=== PATIENT | male | born 1955 | race Caucasian/White ===

== ENCOUNTER → 2019-07-29 | Outpatient (CLI) | payer BC ==
--- NOTE | 2019-07-29 11:54 | ECHOS ---
STRESS ECHOCARDIOGRAM DATE OF SERVICE: 07/29/2019 INDICATIONS: Chest pain. MEDICATIONS: Atorvastatin, omeprazole, metformin. BASELINE HEART RATE: 70 BASELINE BLOOD PRESSURE: 140/73 MAXIMUM HEART RATE: 159 MAXIMUM BLOOD PRESSURE: 219/83 85% MPHR: 135 100% MPHR: 159 METS: 10.3 MAXIMUM STAGE REACHED: III TOTAL EXERCISE TIME: 9 minutes CLINICAL INFORMATION: Baseline rhythm is sinus mechanism, rate of 70, normal axis and intervals, poor R progression. Baseline blood pressure 140/73 mmHg. Patient exercised on Juanito protocol for 9 minutes reaching peak rate 159 beats per minute which is equal to 100% maximum predicted heart rate. Peak blood pressure 219/83 mmHg. Test was terminated secondary to fatigue. There is no chest pain. Electrocardiograph monitoring revealed a [address]-segment depression inferolateral leads that improved in recovery. Baseline echocardiogram revealed normal wall thickness and motion. At peak exercise, there was a questionable inferobasal septal wall hypokinesis, although not well visualized that could represent small area of stress-induced ischemia. CONCLUSION: 1. Good exercise tolerance with positive electrocardiograph stress testing. 2. Abnormal stress echocardiogram with an area of hypokinesis involving the inferobasal and inferoseptal wall that is suggestive of stress-induced ischemia in the RCA territory. MMODL / IJN: [id number] / MTDD
== END | disposition home or self-care (01) ==
LOC: RADNMMAIN 09:40
PROVIDERS: ATTEND Internal Medicine
DX: R94.39 Abnormal result of other cardiovascular function study (principal)
CPT/HCPCS: 93351

== ENCOUNTER 2019-08-19 06:22 | Day surgery (SDC) | payer BC ==
[2019-08-17 14:22] VITALS: BMI 30.2
[~2019-08-19 06:22] MED LIST: ALPRAZolam 0.25 MG TAB PO PRN; ALPRAZolam 0.5 MG TAB PO PRN; NITROGLYCERIN SL TABS 0.4 MG TAB SUBLINGUAL PRN; SODIUM CHLORIDE 0.9% 1,000 ML in EMPTY BAG 1 BAG IV ONE
[2019-08-19] MEDS ORDERED: ASPIRIN 81 MG ONE (06:38)
[2019-08-19] MEDS ORDERED: ASPIRIN 325 MG TAB PO ONE (07:00)
[2019-08-19] MEDS ORDERED: ATORVASTATIN 80 MG TAB PO ONE (07:00)
[2019-08-19 07:04] LABS: Glucose,Whole Blood 147 mg/dL (75-99)
[2019-08-19] MEDS ORDERED: fentaNYL (PF) 50 MCG/ML 2 ML AMP IVP ONE (07:46)
[2019-08-19] MEDS ORDERED: LIDOCAINE 1% INJ 10MG/ML (20 ML MDV) SQ ONE (07:50)
[2019-08-19] MEDS ORDERED: MIDAZOLAM 2 MG/2 ML VIAL IVP ONE (07:51)
[2019-08-19] MEDS ORDERED: VERAPAMIL SYRINGE (5 MG/10 ML) INTRAARTER ONE (07:52)
[2019-08-19] MEDS ORDERED: BIVALIRUDIN BOLUS 250 MG/50 ML IV ONE (08:07)
[2019-08-19] MEDS ORDERED: BIVALIRUDIN 250 MG in SODIUM CHLORIDE 0.9% 50 ML IV ONE ×4 (08:09)
[2019-08-19] MEDS ORDERED: PRASUGREL 10 MG TAB PO ONE (08:11)
[2019-08-19] MEDS ORDERED: NITROGLYCERIN 1000MCG/10ML SYRINGE INTRACORON ONE (08:18)
[2019-08-19] MEDS ORDERED: IOPAMIDOL-370 125ML BTL INJ ONE ×2 (08:18)
[2019-08-19] MEDS ORDERED: IOPAMIDOL-370 100ML BTL INJ ONE (08:19)
[2019-08-19] MEDS ORDERED: RX INFO: IV CONTRAST WAS GIVEN 1 EACH MISC MISCELLANE PRN (08:29)
[2019-08-19] MEDS ORDERED: MAG HYDROX/AL HYDROX/SIMETH 30 ML CUP PO PRN (08:29)
[2019-08-19] MEDS ORDERED: NITROGLYCERIN SL TABS 0.4 MG TAB SUBLINGUAL PRN (08:29)
[2019-08-19] MEDS ORDERED: ATROPINE SULFATE 0.1 MG/ML 10ML SYRINGE IV PRN (08:29)
[2019-08-19] MEDS ORDERED: SODIUM CHLORIDE 0.9% 1,000 ML IV SCH (08:30)
[2019-08-19] MEDS ORDERED: PANTOPRAZOLE 40 MG TABLET PO PRN (08:30)
--- NOTE | 2019-08-19 09:06 | PTCA ---
PERCUTANEOUSTRANS CORORONARY ANGIOGRAPHY Mr. Gardner is a 64-year-old male with a known history of hypertension, hyperlipidemia, and diabetes mellitus, who has been complaining of episode of chest discomfort and had an abnormal stress test, underwent cardiac catheterization was found to have critical stenosis involving the proximal LAD. In view of that, recommendation was made regarding angioplasty and stenting. The procedure as well as the risks and complications were discussed with the patient who is in full understanding and agreement. PROCEDURE: A 6-Cymraes FL 3.5 guiding catheter introduced in the system. After cannulating the left main, a 0.014 balanced medium weight J-wire was advanced across the lesion and positioned in distal LAD. Subsequently a 3.5 x 15 mm Xience Kelli stent was advanced, deployed and postdilated at 16 atmospheres. After the last inflation, after appropriate wait, the balloon and the guidewire withdrawn back in the guiding catheter. Images were obtained, repeated. Those images reveal stable successful stenting. At that point, the guiding catheter, the balloon, the guidewire were removed. Sheath was removed. Hemostasis was obtained with deployment of TR band. There was no immediate complication. Patient was returned to his room in stable condition. Of note, the patient received Angiomax per protocol as well as oral loading dose of Effient. He has received intra-arterial verapamil. RESULTS: Successful stenting of the proximal LAD with reduction of stenosis from 70% to 0%. RECOMMENDATION: Patient will be continued on aspirin, Effient, beta markos, and statin. The importance of dual antiplatelet treatment were discussed with the patient and his family who are in full understanding and agreement. Duration of procedure is 36 minutes. MMODL / IJN: [id number] /
--- NOTE | 2019-08-19 09:10 | LTR ---
August 19, 2019 Re: Stas Gardner Dear Dr. Castaneda: I had the opportunity to perform cardiac catheterization and coronary angioplasty and stenting on Mr. Gardner at [facility] on the 19 of August and a full copy of the procedure note will be forwarded to you. In brief, he underwent successful stenting of his proximal LAD using a drug-eluting stent. I am hopeful that this procedure will stabilize his status. Thank you again for allowing me the opportunity to participate in his care. Please feel free to call for any questions. Sincerely yours, Sunshine Osorio MD MMBOLAL / EVERN: [id number] /
--- NOTE | 2019-08-19 09:16 | CC ---
CARDIAC CATHETERIZATION REPORT Mr. Gardner is a 64-year-old male with a known history of hypertension, hyperlipidemia, diabetes mellitus, who has been complaining of exertional chest discomfort. He had an abnormal stress echocardiogram. In view of that, recommendation regarding cardiac catheterization. The procedures, risks, and complications were discussed with the patient who is in full understanding and agreement. PROCEDURE: Patient was brought to the r and d lab technician in the fasting semi-sedated state after receiving fentanyl and Benadryl and achieving moderate conscious sedated state. Using Xylocaine anesthesia and a Seldinger technique, a 6-Japanese sheath was introduced in the right radial artery. Selective right and left coronary angiography performed using 5- Japanese 3.5 bend right and left Boy catheter multiple views of the coronary artery including hemiaxial views obtained. Following that, 5-Japanese tight pigtail catheter was introduced in the left ventricle and pressures were calculated. Following that, catheter removed, images were reviewed. FINDINGS: LEFT MAIN: This is a large-sized vessel trifurcating into left circumflex, left anterior descending artery and ramus intermedius. Left main coronary artery has no evidence of obstructive coronary artery disease. LEFT ANTERIOR DESCENDING ARTERY: This is a large-sized vessel reaching toward the apex with a wraparound apex segment giving rise to a large diagonal branch proximally. Prior to the takeoff of diagonal branch, there is a 70% eccentric lesion. The rest of the vessel has no high-grade stenosis. LEFT CIRCUMFLEX: This is a non-dominant vessel, large in caliber, giving rise to a large obtuse marginal branch. The left circumflex has mild intimal disease of 10% to 20% without any evidence of high-grade stenosis. RAMUS INTERMEDIUS: This is a large-sized vessel, reaching toward the apical lateral wall. The ramus intermedius has a 10% to 20% plaque proximally without any evidence of high-grade stenosis. RIGHT CORONARY ARTERY: This is a large dominant vessel bifurcating distally into PDA and posterolateral segment and branches the right coronary artery in mid segment has a 20% eccentric plaque. The rest of the vessel has no high-grade stenosis. LEFT VENTRICULOGRAM: Left ventriculogram was not performed. HEMODYNAMICS: There was no gradient across the aortic valve. The left ventricular end- diastolic pressure is 16-20 mmHg. CONCLUSION: 1. Critical stenosis involving the proximal left anterior descending artery. 2. Mild disease in the right coronary artery and left circumflex. RECOMMENDATION: In view of finding anatomy, I recommend proceeding with angioplasty and stenting of the LAD. The procedures, risks, and complication were discussed with the patient,.who is in full understanding and agreement. MMBOLAL / IJN: [id number] / MTDD
[2019-08-19] MEDS ORDERED: ZOLPIDEM 5 MG TAB PO PRN (21:00)
[2019-08-19] MEDS: METOPROLOL SUCCINATE (ER) 50 MG TAB.ER.24H PO SCH (21:40)
[2019-08-20] MEDS ORDERED: OXYMETAZOLINE 0.05% NASL SPRAY 1 SPRAY BOTTLE NASAL PRN (07:00)
--- NOTE | 2019-08-20 07:29 | PN ---
PROGRESS NOTE CARDIAC PROGRESS NOTE: Mr. Gardner is a 64-year-old male with known history of diabetes and hyperlipidemia who presented with symptoms of chest discomfort and abnormal stress test, underwent cardiac catheterization, was found to have critical stenosis involving the proximal LAD and underwent stenting of that vessel. He had epistaxis during the night and according to him he has that at home during the winter. He denies any chest pain. His breathing has been stable. He denies any dizziness or palpitation. He denies any nausea. He continued to be on aspirin once a day, Lipitor 40 mg daily, metoprolol succinate 50 mg daily, Effient 10 mg daily. PHYSICAL EXAMINATION: Blood pressure 131/80 with the heart rate in 70s. LUNGS: Clear. HEART: Regular rate and rhythm. S1, S2. No S3. No rub. ABDOMEN: Soft, nontender. EXTREMITIES: No edema. Right radial pulse intact. LAB DATA: Lab data are pending. IMPRESSION: 1. Status post stenting of the LAD. 2. Hyperlipidemia. 3. Diabetes. RECOMMENDATION: Patient will be discharged home today and followed as an outpatient. He will resume his metformin in 48 hours. MMODL / IJN: [id number] /
[2019-08-20 07:44] LABS: Calcium 9.7 mg/dL (8.4-10.2); Potassium 4.5 mmol/L (3.5-5.1)
[2019-08-20 07:57] VITALS: RESP 16
[2019-08-20] MEDS: ASPIRIN 81 MG PO SCH (09:11)
[2019-08-20] MEDS: ATORVASTATIN 40 MG TAB PO SCH (09:11)
[2019-08-20] MEDS: PRASUGREL 10 MG TAB PO SCH (09:11)
[2019-08-20] MEDS ORDERED: BACITRACIN 500 UNIT/GM OINT 28.4 GM TUBE TOPICAL PRN (15:37)
[2019-08-20] MEDS: METOPROLOL SUCCINATE (ER) 50 MG TAB.ER.24H PO SCH (20:11)
--- NOTE | 2019-08-20 21:20 | CONS ---
CONSULTATION DATE OF CONSULTATION: 08/20/2019 REASON FOR CONSULTATION: Left-sided epistaxis. HISTORY OF PRESENT ILLNESS: This patient is a very pleasant 64-year-old male who was initially brought to [facility] because of complaints of chest pain. The patient apparently failed a stress test and subsequently underwent cardiac catheterization with insertion of a stent. He was given heparin for this procedure. Shortly after the procedure and prior to the patient's discharge, he started developing bleeding from the left nostril and spit out a rather large blood clot. Apparently each time the patient tried to sit up or stand up, it produced the same result; namely, he would spit out a large blood clot. He states that in the past he has had minor nosebleeds off and on, but he has always been able to stop them by simply pinching his nostrils. He also admits to taking baby aspirin infrequently. He smokes 1 or 2 cigars occasionally and has been advised to stop use of all tobacco products for obvious health reasons. I advised the patient that cigars are just as harmful to his health, especially his cardiac health, as are cigarettes. At the present time, the patient is not having any significant therenasal bleeding in his room. PAST MEDICAL HISTORY: Past medical history reveals that he has an ALLERGY TO PENICILLIN. HOME MEDICATIONS: Home medications include; 1. Metformin. 2. Metoprolol. 3. Aspirin. 4. Prilosec. 5. New medication Effient 6. Nitroglycerin. 7. Lipitor. REVIEW OF SYSTEMS: Review of systems reveals that the cardiovascular system is positive for hypertension and ASHD. Gastrointestinal system is positive for GERD (gastroesophageal reflux disorder). The metabolic/endocrine system is positive for hypercholesterolemia. The remainder of the review of systems is essentially unremarkable. PHYSICAL EXAMINATION: HEENT EXAMINATION: Patient is normocephalic. Tympanic membranes are normal. Middle ear spaces are free of any fluid or infection. Pupils are equal, round and reactive to light and accommodation. Conjunctivae are clear. Intranasal examination reveals right naris is completely clear. However, examination of the left naris reveals an area of recent bleeding on the anterior septum. I allowed the patient's nurse to view this area. At that time it was not actively bleeding, but within the span of a short amount of time, it did start to bleed. There is [id number] septal deviation to left with bilateral compensatory hypertrophy of the inferior turbinates. Examination of oropharynx reveals a small amount of blood running down the posterior pharyngeal wall. Cranial nerves 2 through 12 and the remainder of the head and neck exam all within normal limits. CHEST/CARDIOVASCULAR: Both lung cool are clear to percussion and auscultation. Patient is in regular sinus rhythm. S1 and S2 are present without evidence of any murmurs, S3s or S4s. The remainder of the physical exam is essentially unremarkable. IMPRESSION: 1. Left anterior epistaxis. 2. Hypertension. 3. Atherosclerotic heart disease. 4. Gastroesophageal reflux disorder. 5. Hypercholesterolemia. PLAN: I spent almost 2 hours with this patient in an effort to get the bleeding to stop. Initially, I tried spraying Afrin nasal spray intranasally, but this did not work. The next step was to try applying pressure with a nose clip for 5 minutes, and again the patient continued to bleed. I subsequently went to my office and retrieved a packing material called Nasal-cease. This material is not like the usual packing material used in the emergency room because it tends to be less traumatic to the nasal mucosa. My concern at this point is that if we place a standard packing of either nasal balloons or a Merocel nasal tampon intranasally, we will simply stir up additional bleeding spots. Certainly, the reason why the bleeding is persistent is because of the blood thinner, but he cannot stop his blood thinner because of the stent. Again, I spent approximately 2 hours with this patient, and initially I inserted one of the Nasal-cease packing material in the left naris and this was left in place for a period of approximately 30 minutes, as required. Upon removing the packing, the patient was still having some oozing, and therefore a second packing was applied. This again was left in place for a period of approximately 30 minutes. Upon removing the second packing, there was no evidence of any bleeding. It was noted that the packing was only lightly stained with blood. Each time that I inserted packing I made sure that the patient's understood the process and that she felt that if necessary that she could insert the packing. A mustache dressing was created and applied to the patient's naris to prevent him from constantly dabbing his nose with a towel. The patient has been advised not to blow his nose. If he feels there is something in his nose, he should simply sniff it back and spit it out. Also, if he has to sneeze, I have advised the patient to open his mouth and let the force of the sneeze come out through his mouth. I would recommend that we keep the patient overnight for observation, and if he has no further significant bleeding episodes, then I will be in tomorrow and I will discharge him to home between 1:00pm and 1:30pm. Please do not discharge the patient before this time because I would like to see him. I will dictate a series of homegoing instructions for this patient, all of which I have gone over with the patient and his in the patient's room. In addition to this, I will give the patient several samples of the Nasal-cease packing, and I have instructed them how to use them. For the next 5 days I will simply have the patient apply bacitracin ointment twice daily. Beginning Friday, he can start putting Afrin nasal spray in his left naris, 3 puffs, 3 times daily. He should then wait 15 minutes and then apply a dab of the bacitracin ointment intranasally for the next 5 days. After 5 days, he should switch over to regular generic Vaseline petroleum jelly. He will continue using the Vaseline petroleum jelly twice daily until such time as he turns his heating system off. All of these instructions and more are included in his discharge packet. I suspect this patient will continue to have nosebleeds off and on during the winter months and perhaps even more so now that he has to remain on a blood thinner. Certainly applying Vaseline petroleum jelly twice daily will help keep the nose moist, and I have also recommended that the patient's purchase a cool mist humidifier to place in the bedroom. The Vaseline petroleum jelly is highly effective with keeping the nasal mucosa moist, and they will continue using this until such time as they turn the heating system off in their home. I will leave a prescription for Zithromax Tri-Raul keep the patient from developing a sinus infection because of probable blood in the maxillary sinus. I want to take this opportunity to thank you for allowing me to assist in the care of your patient. As I stated above, I will see the patient tomorrow, and if he is doing okay then I will okay his discharge. Please do not discharge this patient before I have a chance to see him. If I could be of any further assistance, please feel free to call my office. Sincerely, Roland Stephen M.D. HO / OLGA: [id number] / RICHARD
[2019-08-21 07:35] VITALS: TEMP 97.5
[2019-08-21] MEDS: PRASUGREL 10 MG TAB PO SCH (08:48)
[2019-08-21] MEDS: ATORVASTATIN 40 MG TAB PO SCH (08:48)
[2019-08-21] MEDS: ASPIRIN 81 MG PO SCH (08:48)
--- NOTE | 2019-08-21 10:26 | PN ---
PROGRESS NOTE Mr. Gardner is a 64-year-old male with history of diabetes and hyperlipidemia who presented with abnormal stress test and symptoms of chest discomfort. He underwent cardiac catheterization and stenting of the LAD. Yesterday he had persistent epistaxis. His discharge was held. He was evaluated by Dr. Stephen. His epistaxis resolved. He is doing well this morning ambulating without difficulty. Denying any chest pain. No dizziness. No palpitations. No nausea. He continues to be on aspirin 81 mg daily, Effient 10 mg daily, metoprolol succinate 50 mg daily, Lipitor 40 mg daily. PHYSICAL EXAMINATION: Blood pressure 133/80 with a heart rate in the 80s. LUNGS: Clear. HEART: Regular rate and rhythm. S1, S2. No S3. No rub. ABDOMEN: Soft, nontender. EXTREMITIES: No edema. IMPRESSION: 1. Status post stenting of the left anterior descending coronary artery, stable. 2. Hyperlipidemia. 3. Diabetes. 4. Epistaxis, stable. RECOMMENDATIONS: Patient will be evaluated today by Dr. Rivero. If he is stable, he should be able to be discharged home and follow as an outpatient in one week. MMODL / IJN: [id number] /
[2019-08-21 11:07] VITALS: BP 113/76; PULSE 96
== END 2019-08-21 13:49 | disposition home or self-care (01) ==
LOC: CATHCVL 06:22 → 3SCARD 11:58 → CATHCVL 08-21 13:49
PROVIDERS: ATTEND Internal Medicine Interventional Cardiology
DX: I25.10 Atherosclerotic heart disease of native coronary artery without angina pectoris (principal); I10 Essential (primary) hypertension; F17.290 Nicotine dependence, other tobacco product, uncomplicated; E78.5 Hyperlipidemia, unspecified; E11.9 Type 2 diabetes mellitus without complications; K21.9 Gastro-esophageal reflux disease without esophagitis; E78.00 Pure hypercholesterolemia, unspecified; R04.0 Epistaxis; Z79.84 Long term (current) use of oral hypoglycemic drugs; Z79.82 Long term (current) use of aspirin; Z79.899 Other long term (current) drug therapy; Z88.0 Allergy status to penicillin
CPT/HCPCS: 93458; 85347; 80048; C9600; C1769; C1887; C1874; J2250; J2001; J3010; J0583; Q9967 ×2

== ENCOUNTER 2021-09-01 10:29 | Emergency (ER) | payer BC ==
[2021-09-01 10:40] VITALS: RESP 18; TEMP 98
[2021-09-01] MEDS ORDERED: LIDOCAINE 1%-EPI 1:100,000 20 ML VIAL SQ STA (11:04)
--- NOTE | 2021-09-01 11:16 | ED ---
General Adult HPI - General Chief complaint: Recheck/Abnormal Lab/Rx Stated complaint: Recheck Time Seen by Provider: 09/01/21 10:55 Source: patient Mode of arrival: ambulatory Limitations: no limitations - History of Present Illness Initial comments: 66-year-old male presents to the emergency room for a chief complaint of bleeding hemorrhoid. Patient states he has had rectal bleeding that is bright red in nature since 2 days ago. Patient states that he believes he has a hemorrhoid. Denies any significant pain.Patient has no other complaints at this time including shortness of breath, chest pain, abdominal pain, nausea or vomiting, headache, or visual changes. - Related Data Home Medications Medication Instructions Recorded Confirmed metFORMIN HCL ER [Glucophage XR] 500 mg PO AC-BID 12/12/16 08/19/19 Aspirin [Adult Low Dose Aspirin EC] 162 mg PO DAILY 08/17/19 08/19/19 Metoprolol Succinate [Toprol XL] 50 mg PO HS 08/17/19 08/19/19 Omeprazole [PriLOSEC] 20 mg PO DAILY PRN 08/17/19 08/17/19 Previous Rx's Medication Instructions Recorded Atorvastatin [Lipitor] 40 mg PO DAILY #90 tab 08/20/19 Nitroglycerin Sl Tabs [Nitrostat] 0.4 mg SUBLINGUAL Q5M PRN #25 tab 08/20/19 Prasugrel [Effient] 10 mg PO DAILY #90 tab 08/20/19 Hydrocortisone [Anusol-Hc] 1 applic RECTAL DAILY #30 gm 09/01/21 Allergies Allergy/AdvReac Type Severity Reaction Status Date / Time amoxicillin AdvReac Nausea Verified 09/01/21 10:40 Review of Systems ROS Statement: Those systems with pertinent positive or pertinent negative responses have been documented in the HPI. ROS Other: All systems not noted in ROS Statement are negative. Past Medical History Past Medical History: Chest Pain / Angina, Diabetes Mellitus, Hyperlipidemia Additional Past Medical History / Comment(s): hemmorrhoids History of Any Multi-Drug Resistant Organisms: None Reported Past Surgical History: Heart Catheterization With Stent Additional Past Surgical History / Comment(s): colonoscopy, heart cath with sent to the LAD Past Anesthesia/Blood Transfusion Reactions: No Reported Reaction Date of Last Stent Placement:: t Past Psychological History: No Psychological Hx Reported Smoking Status: Never smoker Past Alcohol Use History: None Reported, Occasional Past Drug Use History: None Reported - Past Family History Mother Family Medical History: Cancer Additional Family Medical History / Comment(s): stomach General Exam Limitations: no limitations General appearance: alert, in no apparent distress Head exam: Present: atraumatic Eye exam: Present: normal appearance, PERRL, EOMI. Absent: scleral icterus, conjunctival injection ENT exam: Present: normal exam, mucous membranes moist Neck exam: Present: normal inspection, full ROM. Absent: tenderness Respiratory exam: Present: normal lung sounds bilaterally. Absent: respiratory distress, wheezes Cardiovascular Exam: Present: regular rate, normal rhythm, normal heart sounds GI/Abdominal exam: Present: soft, normal bowel sounds. Absent: distended, tenderness Rectal exam: Present: hemorrhoids (Patient has a bleeding external hemorrhoid. 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 This actually did expel the clot in the hemorrhoid and bleeding did improve. Patient was referred to general surgery and started on hemorrhoid cream. Will return here for any worsening symptoms. Disposition Clinical Impression: Hemorrhoid Disposition: HOME SELF-CARE Condition: Good Instructions (If sedation given, give patient instructions): Hemorrhoids (ED) Additional Instructions: Lidocaine with epinephrine was injected. This did expel some clot. However if bleeding continues you need to follow up with general surgery or primary care. Please use medication as directed. Please follow-up with your doctor in one to 2 days. Return to the emergency room for any worsening symptoms. Prescriptions: Hydrocortisone [Anusol-Hc] 1 applic RECTAL DAILY #30 gm Is patient prescribed a controlled substance at d/c from ED?: No Referrals: Sunshine Miller MD [Primary Care Provider] - 1-2 days Jennifer Aguilar MD [STAFF PHYSICIAN] - 1-2 days Dalton Crum MD [STAFF PHYSICIAN] - 1-2 days Time of Disposition: 11:10
[2021-09-01 11:59] VITALS: BP 126/84; PULSE 88
== END 2021-09-01 12:03 | disposition home or self-care (01) ==
LOC: EC 10:29
DX: K64.4 Residual hemorrhoidal skin tags (principal); E11.9 Type 2 diabetes mellitus without complications; E78.5 Hyperlipidemia, unspecified; Z79.84 Long term (current) use of oral hypoglycemic drugs; Z79.82 Long term (current) use of aspirin; Z88.0 Allergy status to penicillin
CPT/HCPCS: 99283